=== PATIENT | female | born 1965 | race Caucasian/White ===

== ENCOUNTER 2023-05-08 10:14 | Outpatient (CLI) | payer BC, SELFPAY ==
--- NOTE | 2023-05-08 10:15 | CRLHL7_ITS ---
For Patients: As a result of the Century Cures Act, medical imaging exams and procedure reports are released immediately into your electronic medical record. You may view this report before your referring provider. If you have questions, please contact your health care provider. INDICATION: Dysphagia. Pain with swallowing. TECHNIQUE : SINGLE and double contrast esophagram. FINDINGS: No evidence for esophageal stricture, mass, or obstruction. No evidence for esophagitis or ulceration. There was only a very tiny sliding type esophageal hiatal hernia seen toward the end of the examination with the patient in the right lateral decubitus position with Valsalva maneuvers. Minor reflux which quickly cleared spontaneously. Brief evaluation of the stomach and duodenum indicate that they are within normal limits. These findings were discussed briefly with the patient. 3 minutes 41 seconds fluoroscopy time utilized. IMPRESSION: 1. No stricture, mass, or obstruction. No esophageal motility disorder. No ulceration or esophagitis. 2. Very tiny sliding type esophageal hiatal hernia seen only with the patient in the right lateral decubitus position with a Valsalva maneuver. Minimal reflux relatively quickly cleared. Dictated by Andry Byers MD @ 05/08/2023 11:42:12 AM (Electronically Signed)
--- NOTE | 2023-05-08 11:00 | CRLHL7_ITS ---
For Patients: As a result of the Century Cures Act, medical imaging exams and procedure reports are released immediately into your electronic medical record. You may view this report before your referring provider. If you have questions, please contact your health care provider. INDICATION: Dysphagia for 3 years. Progressive dysphagia over the last 6 months. Sensation of food sticking. Constant pain. COMPARISON: Correlation is made with today`s esophagram. TECHNIQUE: A CT volumetric acquisition was performed of the neck during intravenous infusion of 79 cc of nonionic Isovue 370. FINDINGS: The CT images demonstrate normal aeration of the mastoid air cells and middle ear cavities. The paranasal sinuses are clear with the exception of trace mucosal thickening in the left maxillary sinus. The nasopharynx appears normal. The parotid and submandibular glands are of normal size and have uniform enhancement. The oropharynx appears normal. The valleculae, epiglottis, aryepiglottic folds and piriform sinuses appear normal. There is a normal appearance of the larynx and subglottic trachea. The thyroid gland is of normal size and has uniform density. There is no evidence of lymphadenopathy within the anterior and posterior cervical triangles or within the supraclavicular region. The lung apices are clear. Barium within the stomach. Degenerative disc disease C4, C5, and C6. IMPRESSION: Negative neck CT. Please note that all CT scans at this facility use dose modulation, iterative reconstruction, and/or weight-based dosing when appropriate to reduce radiation dose to as low as reasonably achievable. Dictated by Andry Byers MD @ 05/09/2023 11:26:42 AM (Electronically Signed)
== END 2023-05-08 10:15 | disposition home or self-care (01) ==
LOC: RAD 10:15
PROVIDERS: PCP Nurse Practitioner Family; Visit Provider Otolaryngology
DX: R13.10 Dysphagia, unspecified (principal); J02.9 Acute pharyngitis, unspecified
CPT/HCPCS: 70491; 74221; Q9967